=== PATIENT | female | born 1975 ===

== ENCOUNTER 2024-09-02 18:27 | Emergency (ER) | payer OTHER ==
[~2024-09-02] VITALS: Ht 160 cm; Wt 59.1 kg
[2024-09-02 18:34] VITALS: BP 135/75; PULSE 78; RESP 18; TEMP 98.3; O2SAT 99
== END 2024-09-02 22:57 | disposition left against medical advice (07) ==
LOC: EMS 18:27
DX: M54.2 Cervicalgia (principal); M25.519 Pain in unspecified shoulder; R42 Dizziness and giddiness; Z53.21 Procedure and treatment not carried out due to patient leaving prior to being seen by health care provider